=== PATIENT | female | born 1995 | race Caucasian/White ===

== ENCOUNTER 2016-07-22 18:10 | Emergency (ER) | payer OTHER ==
[2016-07-22] MEDS ORDERED: SULFAMETH/TRIMETH DS 800/160 MG TABLET PO STA (19:14)
[2016-07-22] MEDS ORDERED: SULFAMETH/TRIMETH DS 800/160 MG TABLET PO ONE (19:25)
== END 2016-07-22 19:30 | disposition home or self-care (01) ==
DX: L02.01 Cutaneous abscess of face (principal); H02.843 Edema of right eye, unspecified eyelid
CPT/HCPCS: 81025; 99282; 99283; A9270